=== PATIENT | male | born 1990 | race Caucasian/White ===

== ENCOUNTER 2019-03-22 17:56 | Emergency (ER) | payer OTHER ==
[~2019-03-22] VITALS: Ht 185.4 cm; Wt 86.2 kg
[2019-03-22 18:31] LABS: ABSOLUTE BASOPHILS 0.1 thou/uL (0.0-0.2); ABSOLUTE EOSINOPHILS 0.3 thou/uL (0.0-0.7); ABSOLUTE LYMPHOCYTES 2.2 thou/uL (0.8-5.3); ABSOLUTE MONOCYTES 0.6 thou/uL (0.0-1.2); ABSOLUTE NEUTROPHILS 3.2 thou/uL (1.6-8.1); BASOPHILS 0.9 %; EOSINOPHILS 4.9 %; HEMATOCRIT 35.1 % (42.0-52.0); HEMOGLOBIN 11.1 gm/dL (14.0-18.0); LYMPHOCYTES 34.7 %; MCH 20.7 pg (26.0-34.0); MCHC 31.5 g/dL (28.0-37.0); MCV 65.5 fL (80.0-100.0); MONOCYTES 9.1 %; MPV 8.5 fl. (7.2-11.1); NUCLEATED RBCS 0 /100WBC; PLATELET COUNT* 259 thou/uL (150-400); POLYS 50.4 %; RBC 5.36 mil/uL (4.50-6.00); RDW-CV 18.2 % (10.5-14.5); WBC 6.3 thou/uL (4.0-11.0)
[2019-03-22 18:38] LABS: CALCIUM 8.7 mg/dL (8.5-10.1); CREATININE 1.2 mg/dL (0.6-1.3); POTASSIUM 3.7 mmol/L (3.5-5.1)
[2019-03-22 18:43] LABS: ALBUMIN 3.8 g/dL (3.4-5.0); TOTAL BILIRUBIN 0.2 mg/dL (<0.1-1.0); TOTAL PROTEIN 7.8 g/dL (6.4-8.2)
[2019-03-22 18:51] LABS: ANISOCYTOSIS 1+; HYPOCHROMASIA 1+; MICROCYTES 2+; PLATELET ESTIMATE ADEQUATE
[2019-03-22] MEDS ORDERED: LEVAQUIN 750 M750 MG PO (20:19)
[2019-03-22] MEDS ORDERED: ACETAMINOPHEN-1 EAC1 PO (20:19)
[2019-03-22 20:48] VITALS: BP 160/78
== END 2019-03-22 20:48 | disposition home or self-care (01) ==
LOC: M.ERS 17:56
PROVIDERS: Nurse Practitioner Family
DX: J18.9 Pneumonia, unspecified organism (principal)

== ENCOUNTER → 2019-03-29 | Outpatient (CLI) | payer OTHER ==
[~2019-03-29] MED LIST: ACETAMINOPHEN-1 EAC1 PO; FLEXERIL PO; LEVAQUIN 750 M750 MG PO; MEDROLDOSEPACK PO; TRAMADOL 50 MG50 MG PO
== END ==
LOC: M.RAD 09:44
DX: J18.9 Pneumonia, unspecified organism (principal); J90 Pleural effusion, not elsewhere classified; J98.4 Other disorders of lung

== ENCOUNTER 2019-04-02 08:30 | Emergency (ER) | payer OTHER ==
[~2019-04-02] VITALS: Ht 185.4 cm; Wt 102.1 kg
[~2019-04-02 08:30] MED LIST changes: -FLEXERIL PO; -MEDROLDOSEPACK PO; -TRAMADOL 50 MG50 MG PO
[2019-04-02] MEDS ORDERED: FLEXERIL PO (08:40)
[2019-04-02] MEDS ORDERED: LEVAQUIN 750 M750 MG PO (09:34)
[2019-04-02] MEDS ORDERED: MEDROLDOSEPACK PO (09:34)
[2019-04-02] MEDS ORDERED: TRAMADOL 50 MG50 MG PO (09:52)
[2019-04-02 09:54] VITALS: BP 143/85
== END 2019-04-02 09:55 | disposition home or self-care (01) ==
LOC: M.ERS 08:30
DX: J18.9 Pneumonia, unspecified organism (principal)

== ENCOUNTER → 2019-04-12 | Outpatient (CLI) | payer OTHER ==
[~2019-04-12] MED LIST changes: +FLEXERIL PO; +MEDROLDOSEPACK PO; +TRAMADOL 50 MG50 MG PO
== END ==
LOC: M.RAD 13:46
DX: R07.89 Other chest pain (principal)